=== PATIENT | female | born 1960 | race Caucasian/White ===

== ENCOUNTER → 2025-02-01 | Outpatient (CLI) | payer OTHER, SELFPAY ==
--- NOTE | 2025-02-01 13:00 | XR_ITS ---
Examination: Screening digital mammography, bilateral Computer aided detection 3-D breast Tomosynthesis, bilateral Date and time of exam: February 01, 2025 1304 hours Compared to mammograms dating to November 15, 2004 Indication: Screening Technique: Nonmagnified MLO, CC views of the breasts to been obtained, reconstructed from 3-D Tomosynthesis images. R2 computer aided detection program utilized for evaluation of suspicious masses and/or abnormal calcifications. 3-D Tomosynthesis images obtained. Findings: Scattered areas of fibroglandular density. 10 mm nodule indistinct margins upper outer right breast 8 mm focal asymmetry retroareolar region left breast Impression: BI-RADS Category 0: Incomplete: Need additional imaging evaluation Recommend follow-up spot tomographic views of 10 mm nodule upper outer right breast 8mm focal asymmetry retroareolar region left breast as well as bilateral breast sonography to complete the workup.
== END | disposition home or self-care (01) ==
PROVIDERS: PCP Family Medicine; Referring Provider Family Medicine; Visit Provider Family Medicine
DX: Z12.31 Encounter for screening mammogram for malignant neoplasm of breast (principal); N63.11 Unspecified lump in the right breast, upper outer quadrant; N64.89 Other specified disorders of breast
CPT/HCPCS: 77063; 77067

== ENCOUNTER → 2025-02-22 | Outpatient (CLI) | payer OTHER, SELFPAY ==
--- NOTE | 2025-02-22 08:45 | XR_ITS ---
Examination: Breast ultrasound complete, bilateral Date and time of exam: February 22, 2025 0856 hours INDICATIONS: Mammogram February 01, 2025 10 mm nodule indistinct margins outer right breast 8mm focal asymmetry retroareolar region left breast Technique: Real-time grayscale ultrasonographic imaging bilateral breasts, including all 4 quadrants as well as nipple retroareolar and axillary regions. Findings: Sonographic images right breast Retroareolar cysts, 5 x 5 mm, 3 x 3 mm No solid nodules Sonographic images left breast No cystic or solid mass IMPRESSION: BI-RADS Category 2: Benign findings
--- NOTE | 2025-02-22 09:45 | XR_ITS ---
Examination: Diagnostic digital mammography, bilateral Computer aided detection 3-D breast Tomosynthesis, bilateral Date and time of exam: 2024 0940 hours INDICATIONS: Mammogram February 01, 2025 10 mm nodule upper outer right breast 8mm focal asymmetry retroareolar region left breast Technique: Nonmagnified MLO, CC views of the breasts to been obtained, reconstructed from 3-D Tomosynthesis images. R2 computer aided detection program utilized for evaluation of suspicious masses and/or abnormal calcifications. 3-D Tomosynthesis images obtained. Findings: Scattered areas of fibroglandular density No suspicious nodules are depicted on the spot compression views Impression: BI-RADS Category 2: Benign findings Return to yearly follow-up mammography.
== END | disposition home or self-care (01) ==
PROVIDERS: PCP Family Medicine; Referring Provider Family Medicine; Visit Provider Family Medicine
DX: N60.01 Solitary cyst of right breast (principal); R92.323 Mammographic fibroglandular density, bilateral breasts
CPT/HCPCS: 76641; 77062; 77066; G0279